=== PATIENT | male | born 1985 | race African-American/Black ===

== ENCOUNTER 2022-08-23 20:13 | Emergency (ER) | payer MEDICARE, MEDICAID ==
[~2022-08-23] VITALS: Ht 188 cm; Wt 79.5 kg
[~2022-08-23 20:13] MED LIST: BENZ1TAB70 PO; DIVA-112 PO; OLAN5TAB52 PO; RISP3TAB35 PO
[2022-08-23 23:30] LABS: BASOPHILS % (AUTO) 0.5 % (0.0-2.0); EOSINOPHILS % (AUTO) 1.9 % (1.0-6.0); HEMATOCRIT 41.5 % (41-53); HEMOGLOBIN 13.7 g/dL (13.5-17.5); LYMPHOCYTES # (AUTO) 2.1 K/uL (1.0-4.8); LYMPHOCYTES % (AUTO) 40.9 % (22.0-44.0); MEAN CORPUSCULAR HEMOGLOBIN 30.8 pg (26.0-34.0); MEAN CORPUSCULAR VOLUME 93 fL (80-100); MONOCYTES # (AUTO) 0.6 K/uL (0.1-1.0); NEUTROPHILS # (AUTO) 2.3 K/uL (1.8-7.7); NEUTROPHILS % (AUTO) 44.7 % (40.0-70.0); PLATELET COUNT (AUTO) 311 K/uL (150-450); RED BLOOD CELL COUNT(AUTO) 4.44 MIL/uL (4.50-5.90); RED CELL DISTRIBUTION WIDTH 14.2 % (11.5-14.5)
[2022-08-23 23:39] LABS: ANION GAP 6 mmol/L (8-16); CARBON DIOXIDE 29 mmol/L (22-29); CHLORIDE 102 mmol/L (98-107); CREATININE 0.91 mg/dL (0.60-1.30); GLUCOSE,RANDOM 82 mg/dL (70-110); POTASSIUM 3.7 mmol/L (3.5-5.1); SODIUM SERUM 137 mmol/L (136-145); UREA NITROGEN, BLOOD 13 mg/dL (7-18)
[2022-08-23 23:40] LABS: GLOMERULAR FILTR. RATE CALC > 60 mL/min (>60)
[2022-08-23] MEDS ORDERED: SODIUM CHLORIDE 0.9% 1,000 ML IV ONE (23:45)
[2022-08-23 23:48] LABS: ALANINE AMINOTRANSFERASE 52 U/L (12-78); ALBUMIN 2.9 g/dL (3.4-5.0); ALKALINE PHOSPHATASE 61 U/L (46-116); ASPARTATE AMINOTRANSFERASE 49 U/L (15-37); BILIRUBIN,TOTAL 0.2 mg/dL (0.1-1.0); LIPASE 77 U/L (73-393); TOTAL PROTEIN, SERUM 7.1 g/dL (6.4-8.2)
[2022-08-23 23:49] LABS: VALPROIC ACID < 3 mcg/mL (50-100)
[2022-08-23 23:57] LABS: B-TYPE NATRIURETIC PEPTIDE 12 pg/mL (0-100)
[2022-08-24 01:03] VITALS: BP 133/81
== END 2022-08-24 01:46 | disposition home or self-care (01) ==
LOC: EMS 20:23
DX: F15.10 Other stimulant abuse, uncomplicated (principal); F20.9 Schizophrenia, unspecified; F32.9 Major depressive disorder, single episode, unspecified; F17.210 Nicotine dependence, cigarettes, uncomplicated
CPT/HCPCS: 99285; 96360; 80053; 80164; 83690; 83880; 84484; 85025; 36415; 93005; J7030